=== PATIENT | male | born 1990 | race Caucasian/White ===

== ENCOUNTER 2018-08-08 20:43 | Emergency (ER) | payer OTHER, SELFPAY ==
[~2018-08-08 20:43] MED LIST: Iopamidol 370 76% 100 ML VIAL ONE
[2018-08-08] MEDS ORDERED: Acetaminophen 500 MG TAB ONE (21:20)
[2018-08-08] MEDS ORDERED: Ondansetron ODT 4 MG TAB ONE (21:20)
[2018-08-08 21:34] LABS: #Eosinphils 0.1 thou/uL (0.0-0.7); #Lymphocytes 2.2 thou/uL (1.20-3.40); #Monocytes 0.7 thou/uL (0.11-0.59); #Neutrophils 6.1 thou/uL (1.40-6.50); %Basophils 0.2 % (0.0-1.0); %Eosinophils 1.6 % (0.0-10.0); %Lymphocytes 24.2 % (21.0-51.0); %Monocytes 7.2 % (0.0-10.0); %Neutrophils 66.8 % (42.0-75.0); Hemoglobin 13.9 g/dL (14.0-18.0); Mean Corpuscular HGB CONC 32.4 g/dL (32.0-36.0); Mean Corpuscular Hemoglobin 26.9 pg (27.0-31.0); Mean Corpuscular Volume 82.9 fL (78.0-98.0); Mean Platelet Volume 8.6 fL (7.4-10.4); Platelet Count 300 thou/uL (130-400); Red Blood Cell (RBC) Count 5.18 mill/uL (4.70-6.10); White Blood Cell (WBC) Count 9.1 thou/uL (4.8-10.8)
[2018-08-08 21:40] LABS: PTT 29.6 SEC (22.9-36.1); Prothrombin Time 13.1 SEC (12.0-14.7)
[2018-08-08 21:56] LABS: ALT (SGPT) 18 U/L (8-55); AST (SGOT) 14 U/L (5-34); Albumin 4.4 g/dL (3.5-5.0); Alkaline Phosphatase 69 U/L (40-150); Anion Gap 14 mmol/L (10-20); BUN (Urea Nitrogen) 19 mg/dL (8.9-20.6); Bilirubin, Total 0.3 mg/dL (0.2-1.2); Calc. Creatinine Clearance 0 mL/min (70-130); Calcium 9.6 mg/dL (7.8-10.44); Carbon Dioxide 23 mmol/L (22-29); Chloride 108 mmol/L (98-107); Estimated GFR-MDRD 65; Globulin 2.9 g/dL (2.4-3.5); Glucose 105 mg/dL (70-105); Lipase 30 U/L (8-78); Potassium 3.8 mmol/L (3.5-5.1); Protein, Total 7.3 g/dL (6.0-8.3); Sodium 141 mmol/L (136-145)
[2018-08-08] MEDS ORDERED: diphenhydrAMINE 50 MG/ML VIAL ONE (21:56)
[2018-08-08 22:13] LABS: Bilirubin Negative (Negative); Blood, Urine Negative (Negative); Clarity CLEAR (Clear); Glucose, Urine (Dipstick) Negative (Negative); Leukocyte Negative (Negative); Nitrite Negative (Negative); Protein, Urine (Dipstick) Negative (Neg-Trace); Specific Gravity, Urine 1.022 (1.002-1.036); Urobilinogen 0.2 mg/dL (0.2-1.0); pH, Urine 6.5 (5.0-9.0)
--- NOTE | 2018-08-08 22:44 | CT ---
CT CHEST AND ABDOMEN AND PELVIS WITH IV CONTRAST: HISTORY: Melena, which started one day ago. Abdominal pain. COMPARISON: 04/26/2014 FINDINGS: THORAX: There is scattered atelectasis within the lungs bilaterally, greater at each lung base. The re is question of a very tiny, less than 4 mm, nodular density, in a subpleural location, at the medi al aspect, right lower lobe (image 33, series 6). No consolidation or pleural fluid is seen. The mediastinal structures have a normal appearance. The thoracic aorta is normal in caliber. ABDOMEN AND PELVIS: The liver, spleen, pancreas, bilateral adrenal glands, abdominal aorta, left kid nina, and urinary bladder demonstrate a normal CT appearance. This exam is obtained in a delayed phase of imaging, as there is contrast noted in each renal collect ing system. A subcentimeter, qve-[id number]-gl-characterize, hypodense lesion is seen in the superior lynn e, right kidney, which was also probably present on the prior exam but not well evaluated due to phas e of imaging. The kidneys otherwise have a normal CT appearance bilaterally. There is linear increased density material again seen at the cecal apex, likely related to prior appe ndectomy. Loops of small bowel are normal in caliber. Scattered colonic diverticula are seen. There is no free fluid, fluid collection, or lymphadenopathy seen in the abdomen or pelvis. The osseous structures have a normal appearance. IMPRESSION: 1. No acute findings are seen in the chest, abdomen, or pelvis. 2. Atelectasis within the lung bases bilaterally. 3. Minimal colonic diverticulosis. 4. CT abdomen and pelvis is overall similar to the prior examination in 2014. POS: [facility]
== END 2018-08-08 22:38 | disposition home or self-care (01) ==
LOC: ERS 20:43
DX: R10.9 Unspecified abdominal pain (principal); Z86.718 Personal history of other venous thrombosis and embolism; Z86.73 Personal history of transient ischemic attack (TIA), and cerebral infarction without residual deficits; F41.9 Anxiety disorder, unspecified; Z79.899 Other long term (current) drug therapy; Y04.0XXA Assault by unarmed brawl or fight, initial encounter
CPT/HCPCS: 36415; 71260; 74177; 80053; 81003; 82274; 83690; 85025; 85610; 85730; 96374; J1200; Q0162; Q9967